=== PATIENT | female | born 1980 | race African-American/Black ===

== ENCOUNTER 2017-08-26 18:20 | Emergency (ER) | payer MEDICAID ==
[~2017-08-26] VITALS: Ht 160 cm; Wt 60.0 kg
[2017-08-26 19:41] VITALS: BP 124/81
== END 2017-08-26 19:43 | disposition home or self-care (01) ==
LOC: ER 18:25
DX: S93.502A Unspecified sprain of left great toe, initial encounter (principal); W19.XXXA Unspecified fall, initial encounter; Y93.89 Activity, other specified; Y92.89 Other specified places as the place of occurrence of the external cause; Y99.8 Other external cause status
CPT/HCPCS: 73620; 99284; Z7610